=== PATIENT | female | born 1955 | race Caucasian/White ===

== ENCOUNTER → 2016-12-10 | Outpatient (CLI) | payer BC ==
--- NOTE | 2016-12-11 09:26 | MM ---
Reason for exam: screening (asymptomatic). Last mammogram was performed 1 year and 6 months ago. History: Patient is postmenopausal. Family history of premenopausal breast cancer in aunt at age 40 and breast cancer in sister at age 59. Cyst aspiration of the left breast, 1979. Took hormonal contraceptives for 3 years beginning at age 19. Physical Findings: A clinical breast exam by your physician is recommended on an annual basis and results should be correlated with mammographic findings. MG Screening Mammo w CAD Bilateral CC and MLO view(s) were taken. Prior study comparison: June 07, 2015, bilateral MG screening mammo w CAD. September 20, 2014, left breast MG diagnostic mammo LT w CAD. The breast tissue is heterogeneously dense. This may lower the sensitivity of mammography. There is chronic nodularity bilaterally. Developing asymmetry 8mm in the left breast, 10cm from nipple. This finding is changed when compared with previous exams. ASSESSMENT: Incomplete: need additional imaging evaluation, BI-RAD 0 RECOMMENDATION: Special view mammogram of the left breast. If lesion persists on supplemental views, image directed ultrasound is recommended. [facility] will attempt to contact patient to return for supplemental views and ultrasound if indicated.
== END | disposition home or self-care (01) ==
LOC: RADMAMWWP 09:45
PROVIDERS: ATTEND Family Medicine
DX: Z12.31 Encounter for screening mammogram for malignant neoplasm of breast (principal)

== ENCOUNTER → 2016-12-14 | Outpatient (CLI) | payer BC ==
--- NOTE | 2016-12-14 14:55 | MM ---
Reason for exam: additional evaluation requested from abnormal screening. Last mammogram was performed less than 1 month ago. History: Patient is postmenopausal. Family history of premenopausal breast cancer in aunt at age 40 and breast cancer in sister at age 59. Cyst aspiration of the left breast, 1979. Took hormonal contraceptives for 3 years beginning at age 19. Physical Findings: Nurse did not find any significant physical abnormalities on exam. MG Work Up Mamm w CAD LT Spot compression CC, spot compression MLO, and ML view(s) were taken of the left breast. Prior study comparison: December 10, 2016, bilateral MG screening mammo w CAD. June 07, 2015, bilateral MG screening mammo w CAD. The breast tissue is heterogeneously dense. This may lower the sensitivity of mammography. No suspicious abnormality. Inferior asymmetry appears unchanged in comparison to 09/18/11. Superior asymmetry and medial CC asymmetry appear as fibroglandular tissue on additional views. These results were verbally communicated with the patient and result sheet given to the patient on 12/14/16. ASSESSMENT: Benign, BI-RAD 2 RECOMMENDATION: Return to routine screening mammogram schedule for both breasts.
== END | disposition home or self-care (01) ==
LOC: RADMAMWWP 13:40
PROVIDERS: ATTEND Family Medicine
DX: R92.8 Other abnormal and inconclusive findings on diagnostic imaging of breast (principal)

== ENCOUNTER → 2018-02-19 | Outpatient (CLI) | payer BC ==
--- NOTE | 2018-02-20 12:57 | MM ---
Reason for exam: screening (asymptomatic). Last mammogram was performed 1 year and 2 months ago. History: Patient is postmenopausal. Family history of premenopausal breast cancer in aunt at age 40 and breast cancer in sister at age 59. Cyst aspiration of the left breast, 1979. Took hormonal contraceptives for 3 years beginning at age 19. Physical Findings: A clinical breast exam by your physician is recommended on an annual basis and results should be correlated with mammographic findings. MG 3D Screening Mammo W/Cad Bilateral CC and MLO view(s) were taken. Prior study comparison: December 14, 2016, left breast MG work up mamm w CAD LT. December 10, 2016, bilateral MG screening mammo w CAD. The breast tissue is heterogeneously dense. This may lower the sensitivity of mammography. There is chronic nodularity bilaterally. There is no dominant lesion. No significant changes when compared with prior studies. ASSESSMENT: Benign, BI-RAD 2 RECOMMENDATION: Routine screening mammogram of both breasts in 1 year.
== END | disposition home or self-care (01) ==
LOC: RADMAMWWP 14:46
PROVIDERS: ATTEND Family Medicine
DX: Z12.31 Encounter for screening mammogram for malignant neoplasm of breast (principal)
CPT/HCPCS: 77063; 77067

== ENCOUNTER → 2019-02-26 | Outpatient (CLI) | payer OTHER ==
--- NOTE | 2019-02-27 12:02 | MM ---
Reason for exam: screening (asymptomatic). Last mammogram was performed 1 year ago. History: Patient is postmenopausal. Family history of premenopausal breast cancer in aunt at age 40 and breast cancer in sister at age 59. Cyst aspiration of the left breast, 1979. Took hormonal contraceptives for 3 years beginning at age 19. Physical Findings: A clinical breast exam by your physician is recommended on an annual basis and results should be correlated with mammographic findings. MG 3D Screening Mammo W/Cad Bilateral CC and MLO view(s) were taken. Prior study comparison: February 19, 2018, bilateral MG 3d screening mammo w/cad. December 14, 2016, left breast MG work up mamm w CAD LT. The breast tissue is heterogeneously dense. This may lower the sensitivity of mammography. There are benign appearing round calcifications bilaterally. There is no discrete abnormality. ASSESSMENT: Benign, BI-RAD 2 RECOMMENDATION: Routine screening mammogram of both breasts in 1 year.
== END | disposition home or self-care (01) ==
LOC: RADMAMWWP 08:59
PROVIDERS: ATTEND Family Medicine
DX: Z12.31 Encounter for screening mammogram for malignant neoplasm of breast (principal); Z80.3 Family history of malignant neoplasm of breast
CPT/HCPCS: 77063; 77067

== ENCOUNTER → 2020-05-09 | Outpatient (CLI) | payer OTHER ==
--- NOTE | 2020-05-10 14:51 | MM ---
Reason for exam: screening (asymptomatic). Last mammogram was performed 1 year and 2 months ago. History: Patient is postmenopausal. Family history of premenopausal breast cancer in aunt at age 40 and breast cancer in sister at age 59. Cyst aspiration of the left breast, 1979. Took hormonal contraceptives for 3 years beginning at age 19. Physical Findings: A clinical breast exam by your physician is recommended on an annual basis and results should be correlated with mammographic findings. MG 3D Screening Mammo W/Cad Bilateral CC and MLO view(s) were taken. Prior study comparison: February 26, 2019, bilateral MG 3d screening mammo w/cad. February 19, 2018, bilateral MG 3d screening mammo w/cad. The breast tissue is heterogeneously dense. This may lower the sensitivity of mammography. No significant changes when compared with prior studies. ASSESSMENT: Benign, BI-RAD 2 RECOMMENDATION: Routine screening mammogram of both breasts in 1 year.
== END | disposition home or self-care (01) ==
LOC: RADMAMWWP 16:13
PROVIDERS: ATTEND Family Medicine
DX: Z12.31 Encounter for screening mammogram for malignant neoplasm of breast (principal)
CPT/HCPCS: 77063; 77067

== ENCOUNTER → 2020-08-16 | Outpatient (CLI) | payer BC, OTHER ==
[2020-08-16 16:25] VITALS: BP 117/74; PULSE 64; RESP 18; TEMP 98.2
--- NOTE | 2020-08-16 18:05 | P.HPOB ---
History of Present Illness H&P Date: 08/16/20 Chief Complaint: The patient is here for her routine gynecologic exam. This is a 65-year-old with an LMP of 2011. She is status post vaginal hysterectomy with BSO with additional procedures for prolapse. She believes the surgery was done with a rectocele repair and not a cystocele repair. My previous history and physical indicated anterior and posterior repairs were performed at that time. The patient has been experiencing some vaginal prolapse which has become very noticeable in the past 3 weeks. She started noticing fullness in the vagina and at times has noticed a golf ball sized mass protruding from the vaginal opening. She believes this is a cystocele. This can be uncomfortable in seems to interfere with sexual intercourse. It can feel as if there is a tampon in the vagina that was improperly inserted. She has also been noticing urinary frequency and vulvar pruritus. She denies vaginal discharge or vaginal odor. She has not been having significant problems with urinary leakage, but sometimes has to get to the bathroom right away when she has the urge to urinate. Review of Systems She has lost about 14 pounds over the past 5 years. She denies respiratory, cardiac, or GI problems. : See the HPI. Past Medical History Past Medical History: Hypertension Additional Past Medical History / Comment(s): Migraine headaches and chronic neck problems. 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 History of Any Multi-Drug Resistant Organisms: None Reported Past Surgical History: Cholecystectomy, Hysterectomy, Joint Replacement, Orthopedic Surgery Additional Past Surgical History / Comment(s): Vaginal hysterectomy with BSO and anterior and posterior repairs in 2011 right knee replacement surgery and later revision. Foot surgery. Shoulder surgery. Ovarian cyst removed at age 18. Multiple arthroscopic knee surgeries. Colonoscopy 2014(next after 10yrs). Past Psychological History: No Psychological Hx Reported Smoking Status: Former smoker Past Alcohol Use History: Rare (2 per year.) Additional Past Alcohol Use History / Comment(s): Quit smoking in 2004. Past Drug Use History: Marijuana Additional Drug Use History / Comment(s): Medical marijuana in the form of edibles. Additional History: She has been since 1975 and is sexually active. 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 - Past Family History Sister(s) Family Medical History: Cancer Additional Family Medical History / Comment(s): Breast cancer. Father Family Medical History: Cancer Additional Family Medical History / Comment(s): Multiple myeloma. Mother Family Medical History: Dementia Medications and Allergies Home Medications Medication Instructions Recorded Confirmed Type Ascorbic Acid [Vitamin C] 1,000 mg PO DAILY 08/16/20 08/16/20 History Bisoprolol-Hctz 2.5-6.25 mg [Ziac 1 tab PO DAILY 08/16/20 08/16/20 History 2.5-6.25 MG] Celecoxib [CeleBREX] 200 mg PO DAILY 08/16/20 08/16/20 History Cholecalciferol [Vitamin D3 (25 25 mcg PO DAILY 08/16/20 08/16/20 History Mcg = 1000 Iu)] Cyanocobalamin (Vitamin B-12) 1,000 mcg PO DAILY 08/16/20 08/16/20 History [Vitamin B-12] Cyclobenzaprine [Flexeril] 10 mg PO HS 08/16/20 08/16/20 History DULoxetine HCL [Cymbalta] 60 mg PO DAILY 08/16/20 08/16/20 History Magnesium 200 mg PO DAILY 08/16/20 08/16/20 History Mtc Coconut Oil 1 cap PO DAILY 08/16/20 08/16/20 History Topiramate 50 mg PO BID 08/16/20 08/16/20 History Zinc 50 mg PO DAILY 08/16/20 08/16/20 History Allergies Allergy/AdvReac Type Severity Reaction Status Date / Time pregabalin [From Lyrica] Allergy Swelling Unverified 08/16/20 16:09 Exam Vital Signs Temp Pulse Resp BP Pulse Ox 08/16/20 15:53 98.2 F 64 18 117/74 100 Intake and Output 08/16/20 08/16/20 08/16/20 06:59 14:59 22:59 Other: Weight 85.275 kg Height 4 feet 11-1/2 inches, weight 188 pounds, BMI 37.3. This is a well-developed well-nourished white female who is alert and oriented times 3 in no acute distress. HEENT: Within normal limits. NECK: Supple without mass or thyromegaly. CHEST AND LUNGS: Clear to auscultation. HEART: Regular rate and rhythm. BREASTS: Are without mass or discharge. AXILLARY EXAM: Negative for adenopathy. BACK: Negative for CVA tenderness. ABDOMEN: Soft, nontender, without palpable masses. PELVIC EXAM: External genitalia appears mildly atrophy with generalized erythema greater in the posterior aspects of the labia majora. This extends to the perineum. There are no focal lesions and no ulceration or excoriation. Vagina appears normal with mild atrophy. There is a minimal amount of thin vaginal discharge within the vagina that is colorless without significant odor. There is a grade 2 cystocele noted at rest. With Valsalva and cough, a grade 3 cystocele is noted. No urinary leakage was demonstrated. Bimanual examination is negative for mass or tenderness. RECTAL EXAM: Rectovaginal exam is negative for mass or tenderness and is negative for occult blood. No significant rectocele is noted. EXTREMITIES: Nontender. IMPRESSION: 1. 65-year-old menopausal female status post vaginal hysterectomy with BSO for benign reasons with symptomatic grade 3 cystocele. 2. Urinary frequency. Differential diagnosis will include UTI as well as urinary frequency related to the cystocele. 3. Vulvar pruritus. Differential diagnosis will include Lenora vaginitis, bacterial vaginosis, noninfectious vulvitis, and less likely, lichen sclerosus. PLAN: 1. Pap smears have been discontinued. 2. Self breast awareness was discussed with the patient. 3. Osteoporosis prevention was discussed. I have stressed the importance of adequate calcium, vitamin D and regular exercise. Recommended amounts of calcium and vitamin D were also discussed. 4. Recent mammogram was done on 05/09/2020 and was benign. She will repeat this in 1 year. 5. Clean catch midstream urine has been obtained and will be sent for urinalysis and culture with sensitivities. 6. Affirm vaginitis panel was obtained from the vagina. 7. We have had a long discussion regarding vaginal prolapse and the grade 3 cystocele. It seems that at rest the cystocele is considered grade 2, but with Valsalva and coughing, the cystocele reaches the introitus. I have recommended that she avoid heavy lifting. She will try negative Valsalva exercises and she can do this prior to voiding, when she feels pressure in the vagina, and before sexual intercourse. 8. We have discussed options for the cystocele including conservative management, pessary use, and surgery. She would like to try the negative Valsalva exercises with conservative measures at this time. She was instructed to call if she would like a referral for surgical correction since she is contem plating this at this time. We have discussed options including referral to a general pocket assembler as well as a referral to a uro-pocket assembler. 9. The ACOG FAQ handout regarding pelvic support problems was given to the patient. 10. She was advised to return in one year for her annual well woman exam and as needed. She will also call if she would like to proceed with a referral for the cystocele.
[2020-08-16 21:47] LABS: Appearance,Urine Cloudy (Clear); Bacteria,Urine Few /hpf; Bilirubin,Urine Negative (Negative); Blood,Urine Negative (Negative); Color,Urine Yellow; Glucose,Urine (UA) Negative (Negative); Ketones,Urine Negative (Negative); Leukocyte Esterase,Urine Negative (Negative); Mucus,Urine Rare /hpf; Nitrite,Urine Negative (Negative); Protein,Urine Negative (Negative); RBC,Urine <1 /hpf (0-5); Specific Gravity,Urine 1.021 (1.001-1.035); Squamous Epithelial Cell,Urine 8 /hpf (0-4); Urobilinogen,Urine <2.0 mg/dL (<2.0); WBC,Urine 2 /hpf (0-5)
--- NOTE | 2020-08-17 11:28 | P.PN ---
Progress Note - Text Progress Note Date: 08/17/20 OUTPATIENT FOLLOW-UP NOTE TEST(S)/RESULTS: Urinalysis done on 08/16/2020 was negative. METHOD OF NOTIFICATION: A message with this result was left on the patient's voicemail. PATIENT COMMENTS: DIAGNOSIS: No evidence of UTI at this time. DISCUSSION: Affirm vaginitis panel is pending. PLAN: Await urine culture and affirm vaginitis panel results.
[2020-08-17 15:09] LABS: Gardnerella Negative (Negative); Source Vagina; Trichomonas Negative (Negative)
--- NOTE | 2020-08-18 08:32 | P.PN ---
Progress Note - Text Progress Note Date: 08/18/20 Test results from 08/16/20 include Affirm vaginitis panel negative for Lenora, Gardnerella, and Trichomonas. UA and urine culture neg. She was notified by phone. Impression: Vulvar pruritis, non-specific vulvitis. Plan: Kenalog 0.1%cream BID prn, disp 30gr tube, one refill. Prescription will be sent electronically to [facility] on [address]. She says she will call to let me know where she would like to be referred for her cystocele. I have recommended Dr. Pina ([facility]). She is considering Dr. Latoya العراقي, a urologist. I have explained the difference in their specialty.
== END ==
LOC: WWCWWP 15:53
PROVIDERS: ATTEND Obstetrics & Gynecology
DX: Z01.419 Encounter for gynecological examination (general) (routine) without abnormal findings (principal); N81.10 Cystocele, unspecified; L29.2 Pruritus vulvae; I10 Essential (primary) hypertension; Z87.891 Personal history of nicotine dependence; Z90.722 Acquired absence of ovaries, bilateral; Z78.0 Asymptomatic menopausal state; Z88.8 Allergy status to other drugs, medicaments and biological substances
CPT/HCPCS: 81001; 87086; 87480; 87510; 87660

== ENCOUNTER → 2021-03-02 | Outpatient (CLI) | payer OTHER ==
--- NOTE | 2021-03-02 09:00 | US ---
EXAMINATION TYPE: US venous doppler duplex LE LT DATE OF EXAM: 03/02/2021 8:23 AM COMPARISON: NONE CLINICAL HISTORY: M79.662.Surgery 11/2020 with left leg pain. SIDE PERFORMED: Left TECHNIQUE: The lower extremity deep venous system is examined utilizing real time linear array sonog josie with graded compression, doppler sonography and color-flow sonography. VESSELS IMAGED: Common Femoral Vein Deep Femoral Vein Greater Saphenous Vein * Femoral Vein Popliteal Vein Small Saphenous Vein * Proximal Calf Veins (* superficial vessels) Occlusive DVT seen from the left proximal femoral vein through the left popliteal vein Left Leg: Positive for DVT IMPRESSION: As above findings are compatible with DVT.
== END | disposition home or self-care (01) ==
LOC: RADUSWWP 08:06
PROVIDERS: ATTEND Family Medicine
DX: I82.4Z2 Acute embolism and thrombosis of unspecified deep veins of left distal lower extremity (principal)

== ENCOUNTER → 2021-03-22 | Outpatient (CLI) | payer OTHER ==
--- NOTE | 2021-03-23 09:51 | ECHOF ---
Referral Reason:R01.1 MEASUREMENTS -------- HEIGHT: 139.7 cm WEIGHT: 86.2 kg BP: RVIDd: 2.3 cm (< 3.3) IVSd: 1.1 cm (0.6 - 1.1) LVIDd: 3.8 cm (3.9 - 5.3) LVPWd: 1.1 cm (0.6 - 1.1) IVSs: 1.3 cm LVIDs: 2.7 cm LVPWs: 1.3 cm LA Diam: 2.9 cm (2.7 - 3.8) LAESV Index (A-L): 34.29 ml/m Ao Diam: 2.6 cm (2.0 - 3.7) AV Cusp: 1.7 cm (1.5 - 2.6) LA Diam: 3.3 cm (2.7 - 3.8) MV EXCURSION: 17.310 mm (> 18.000) MV EF SLOPE: 104 mm/s (70 - 150) EPSS: 0.1 cm MV E Rickey: 0.84 m/s MV DecT: 277 ms MV A Rickey: 0.99 m/s MV E/A Ratio: 0.85 AV maxP.17 mmHg AV meanP.04 mmHg RAP: 5.00 mmHg RVSP: 41.62 mmHg FINDINGS -------- Sinus rhythm. This was a technically good study. LV size, wall thickness and systolic function are normal, with an EF greater than 55%. The left emily tricular size is normal. The right ventricle is normal in size. LA is midly dilated 29-33ml/m2. The right atrial size is normal. There is mild aortic stenosis present. Peak/mean gradient across the Aortic Valve is 17.17mmHg / 8. 04mmHg. Mild mitral regurgitation is present. Mild tricuspid regurgitation present. There is mild pulmonary hypertension. The right ventricular systolic pressure, as measured by Doppler, is 41.62mmHg. There is no pulmonic regurgitation present. Echo free space represents a pericardial fat pad. CONCLUSIONS -------- 1. LV size, wall thickness and systolic function are normal, with an EF greater than 55%. 2. The left ventricular size is normal. 3. The right ventricle is normal in size. 4. LA is midly dilated 29-33ml/m2. 5. The right atrial size is normal. 6. There is mild aortic stenosis present. 7. Peak/mean gradient across the Aortic Valve is 17.17mmHg / 8.04mmHg. 8. Mild mitral regurgitation is present. 9. Mild tricuspid regurgitation present. 10. There is mild pulmonary hypertension. 11. The right ventricular systolic pressure, as measured by Doppler, is 41.62mmHg. 12. Echo free space represents a pericardial fat pad. PEDIATRIC GENETICIST: Yisel Erazo RDCS
== END | disposition home or self-care (01) ==
LOC: RADECHMAIN 11:53
PROVIDERS: ATTEND Family Medicine
DX: I08.3 Combined rheumatic disorders of mitral, aortic and tricuspid valves (principal); I27.20 Pulmonary hypertension, unspecified
CPT/HCPCS: 93306

== ENCOUNTER → 2021-10-13 | Outpatient (CLI) | payer OTHER ==
--- NOTE | 2021-10-16 20:04 | MM ---
Reason for Exam: Screening (asymptomatic). Last mammogram was performed 1 year(s) and 5 month(s) ago. Patient History: Menarche at age 12. First Full-Term at age 23. Left ovary removed at age 58. Right ovary removed at age 58. Hysterectomy at age 58. Postmenopausal. Hormonal Contraceptives for 3 years from age 19 until age 22. 1980, Cyst Aspiration on the Left side. Maternal aunt had breast cancer, age 40. Sister had breast cancer, age 59. Risk Values: Lexus 5 year model risk: 3.4%. NCI Lifetime model risk: 13.2%. Prior Study Comparison: 02/19/2018 Bilateral Screening Mammogram, [facility]. 02/26/2019 Bilateral Screening Mammogram, [facility]. 05/09/2020 Bilateral Screening Mammogram, [facility]. Tissue Density: The breast tissue is heterogeneously dense. This may lower the sensitivity of mammography. Findings: Analyzed By CAD. Areas of bilaterally symmetric density are unchanged. No significant change from prior exams. Overall Assessment: Benign, BI-RAD 2 Management: Screening Mammogram of both breasts in 1 year. 1. Patient should continue monthly self breast exams. 2. A clinical breast exam by your physician is recommended on an annual basis. 3. This exam should not preclude additional follow-up of suspicious palpable abnormalities. Electronically signed and approved by: Davonte Brooks M.D. Radiologist
== END | disposition home or self-care (01) ==
LOC: RADMAMWWP 16:04
PROVIDERS: ATTEND Family Medicine
DX: Z12.31 Encounter for screening mammogram for malignant neoplasm of breast (principal); Z78.0 Asymptomatic menopausal state; Z80.3 Family history of malignant neoplasm of breast
CPT/HCPCS: 77063; 77067

== ENCOUNTER → 2022-11-07 | Outpatient (CLI) | payer OTHER, MEDICARE ==
--- NOTE | 2022-11-08 20:07 | MM ---
Reason for Exam: Screening (asymptomatic). Last mammogram was performed 1 year(s) and 1 month(s) ago. Patient History: Menarche at age 12. First Full-Term at age 23. Left ovary removed at age 58. Right ovary removed at age 58. Hysterectomy at age 58. Postmenopausal. Hormonal Contraceptives for 3 years from age 19 until age 22. 1980, Cyst Aspiration on the Left side. Maternal aunt had breast cancer, age 40. Sister had breast cancer, age 59. Risk Values: Lexus 5 year model risk: 3.5%. NCI Lifetime model risk: 12.7%. Prior Study Comparison: 02/26/2019 Bilateral Screening Mammogram, [facility]. 05/09/2020 Bilateral Screening Mammogram, [facility]. 10/13/2021 Bilateral MG 3D screening mammo w/cad, [facility]. Tissue Density: The breast tissue is heterogeneously dense. This may lower the sensitivity of mammography. Findings: Analyzed By CAD. Bilateral asymmetric densities are unchanged. However, an area of central nodularity left cc view is more defined. Otherwise, no significant change from prior exams. Overall Assessment: Incomplete: need additional imaging evaluation, BI-RAD 0 Management: Special View Mammogram of the left breast. Including spot 3-D CC, 3-D cc rolled, and 3-D lateral views. Targeted left breast ultrasound if any persisting abnormality. [facility] will attempt to contact patient to return for supplemental views and ultrasound if indicated. Electronically signed and approved by: Davonte Brooks M.D. Radiologist
== END | disposition home or self-care (01) ==
LOC: RADMAMWWP 09:31
PROVIDERS: ATTEND Family Medicine
DX: Z12.31 Encounter for screening mammogram for malignant neoplasm of breast (principal); Z78.0 Asymptomatic menopausal state; Z80.3 Family history of malignant neoplasm of breast
CPT/HCPCS: 77063; 77067

== ENCOUNTER → 2022-11-15 | Outpatient (CLI) | payer OTHER, MEDICARE ==
--- NOTE | 2022-11-15 14:15 | MM ---
Reason for Exam: Additional evaluation requested from abnormal screening. Last screening mammogram was performed less than 1 month ago. Patient History: Menarche at age 12. First Full-Term at age 23. Left ovary removed at age 58. Right ovary removed at age 58. Hysterectomy at age 58. Postmenopausal. Hormonal Contraceptives for 3 years from age 19 until age 22. 1980, Cyst Aspiration on the Left side. Maternal aunt had breast cancer, age 40. Sister had breast cancer, age 59. Risk Values: Lexus 5 year model risk: 3.5%. NCI Lifetime model risk: 12.7%. Prior Study Comparison: 12/10/2016 Bilateral Screening Mammogram, [facility]. 12/14/2016 Left Diagnostic Mammogram, [facility]. 02/19/2018 Bilateral Screening Mammogram, [facility]. 02/26/2019 Bilateral Screening Mammogram, [facility]. 05/09/2020 Bilateral Screening Mammogram, [facility]. 10/13/2021 Bilateral MG 3D screening mammo w/cad, [facility]. 11/07/2022 Bilateral MG 3D screening mammo w/cad, [facility]. Tissue Density: Left: The breast tissue is heterogeneously dense. This may lower the sensitivity of mammography. Findings: Analyzed By CAD. Area of questioned asymmetric density centrally on the left becomes less defined on spot view, appearing similar to older priors. On the lateral view, nodularity becomes apparent superiorly at a middle depth. However, a prior lateral view from 2017 shows stable findings. Overall Assessment: Benign, BI-RAD 2 Management: Screening Mammogram of both breasts in 1 year. See note below in regards to patient's increased 5 year Lexus score. Results were given to the patient verbally at the time of exam. Patient should continue monthly self-breast exams. A clinical breast exam by your physician is recommended on an annual basis. This exam should not preclude additional follow-up of suspicious palpable abnormalities. Note on Lexus scores and lifetime risk: 1. A Lexus score greater than 3% is considered moderate risk. If this is the case, consider specialist referral to assess eligibility for a risk reducing agent. 2. If overall lifetime risk for the development of breast cancer is 20% or higher, the patient may qualify for future screening with alternating mammogram and breast MRI. Electronically signed and approved by: Davonte Brooks M.D. Radiologist
== END | disposition home or self-care (01) ==
LOC: RADMAMWWP 13:48
PROVIDERS: ATTEND Family Medicine
DX: R92.8 Other abnormal and inconclusive findings on diagnostic imaging of breast (principal); Z78.0 Asymptomatic menopausal state; Z80.3 Family history of malignant neoplasm of breast
CPT/HCPCS: 77061; 77065

== ENCOUNTER → 2023-01-11 | Outpatient (CLI) | payer OTHER, MEDICARE ==
--- NOTE | 2023-01-11 17:04 | US ---
EXAMINATION TYPE: US venous doppler duplex LE LT DATE OF EXAM: 01/11/2023 4:39 PM COMPARISON: 03/02/21 CLINICAL INDICATION: Female, 67 years old with history of M79.605 PAIN IN LEFT LEG; Lt leg pain, segundo ent had DVT 2020 SIDE PERFORMED: Left TECHNIQUE: The lower extremity deep venous system is examined utilizing real time linear array sonog josie with graded compression, doppler sonography and color-flow sonography. VESSELS IMAGED: Common Femoral Vein Deep Femoral Vein Greater Saphenous Vein * Femoral Vein Popliteal Vein Small Saphenous Vein * Proximal Calf Veins (* superficial vessels) Left Leg: Positive for ?chronic? DVT DVT appears largely unchanged from 2020, partially thrombosed from proximal to distal femoral vein. T hrombosed area may show adjacent collateral flow vs. recanalized chronic DVT vs. other. Popliteal carter ws compressibility but thready color flow. IMPRESSION: Findings in the left femoral vein likely related to sequela of chronic DVT.
== END | disposition home or self-care (01) ==
LOC: RADUSWWP 16:02
PROVIDERS: ATTEND Family Medicine
DX: I82.402 Acute embolism and thrombosis of unspecified deep veins of left lower extremity (principal); M79.605 Pain in left leg; Z86.718 Personal history of other venous thrombosis and embolism

== ENCOUNTER → 2023-01-31 | Outpatient (CLI) | payer OTHER, MEDICARE ==
--- NOTE | 2023-01-31 11:43 | BD ---
EXAMINATION TYPE: Axial Bone Density DATE OF EXAM: 01/31/2023 CLINICAL HISTORY: 67 years old Female. ICD-10 CODE: Z13.820 ENCOUNTER FOR SCREENING FOR OSTEOPOROSIS Height: 60 in Weight: 181 lbs RISK FACTORS HISTORY OF: Active: yes Postmenopausal woman: total hysterectomy age 57 MEDICATIONS: Additional Medications: vit d,multi vit, blood pressure meds, migraine meds, anti inflammatory, EXAM MEASUREMENTS: Bone mineral densitometry was performed using the [employer]. Bone mineral density as measured about the Lumbar spine is: ----- L1-L4(G/cm2): 1.146 T Score Values are as follows: ----- L1: -0.1 ----- L2: -0.2 ----- L3: -0.2 ----- L4: -0.8 ----- L1-L4: -0.3 Z Score Values are as follows: ----- L1: 1.0 ----- L2: 0.8 ----- L3: 0.8 ----- L4: 0.2 ----- L1-L4: 0.7 Bone mineral density baseline Bone mineral density about the R hip (g/cm2): 0.829 Bone mineral density about the L hip (g/cm2): 0.966 T Score values are as follows: -----R Neck: -2.1 -----L Neck: -1.3 -----R Total: -1.4 -----L Total: -0.3 Z Score values are as follows: -----R Neck: -0.9 -----L Neck: -0.1 -----R Total: -0.6 -----L Total: 0.5 Bone mineral density baseline FRAX%s: The graph provided illustrates a 10.4% chance for a major osteoporotic fx and a 1.6% chance f or the hips probability for fx in 10 years time. IMPRESSION: Osteopenia (T Score between -2.5 and -1). There is slightly increased risk of fracture and the patient may be considered for treatment. Re-Screen 2-5 years. NOTE: T-SCORE=SD OF THE YOUNG ADULT MEAN.
== END | disposition home or self-care (01) ==
LOC: RADBDWWP 07:14
PROVIDERS: ATTEND Family Medicine
DX: Z13.820 Encounter for screening for osteoporosis (principal); M85.89 Other specified disorders of bone density and structure, multiple sites; Z78.0 Asymptomatic menopausal state
CPT/HCPCS: 77080

== ENCOUNTER → 2023-07-23 | Outpatient (CLI) | payer MEDICARE, OTHER ==
[2023-07-23 16:16] VITALS: BP 134/71; PULSE 72; RESP 18; TEMP 98.1
--- NOTE | 2023-07-23 17:19 | P.HPOB ---
History of Present Illness H&P Date: 07/23/23 Chief Complaint: The patient is here for her routine gynecologic exam. This is a 68-year-old with an LMP of 2011. She is status post vaginal hysterectomy with BSO for benign reasons. The patient had a worsening cystocele in 2020 and was referred to Dr. Newby for this. He performed a cystocele repair with a uterosacral vault suspension. She denies any significant prolapse symptoms. During the past 6 months she has noticed some vulvar burning, itchiness, and dryness. She notices blood on the posterior left labial area. Her liquor gallery operator examined it and also did a biopsy from her chest area and indicated that the biopsy showed lichen sclerosis. She was given clobetasol ointment which she was to use for 2 weeks and then she was to use tacrolimus ointment 0.1% daily. She states the Temovate did help, but it has not completely gone away. She states the tacrolimus ointment was very expensive. She is otherwise without gynecologic complaints. Review of Systems She has lost 9 pounds since she was last here 3 years ago. She denies respiratory, cardiac, or GI problems. Past Medical History Past Medical History: Deep Vein Thrombosis (DVT), Hypertension Additional Past Medical History / Comment(s): Migraine headaches and chronic neck problems. Postoperative DVT in 2020. PAST SALES [employer] HISTORY: She has no history of STDs. History of Any Multi-Drug Resistant Organisms: None Reported Past Surgical History: Cholecystectomy, Hysterectomy, Joint Replacement, Orthopedic Surgery Additional Past Surgical History / Comment(s): Vaginal hysterectomy with BSO and anterior and posterior repairs in 2011 right knee replacement surgery and later revision. Foot surgery. Shoulder surgery. Ovarian cyst removed at age 18. Multiple arthroscopic knee surgeries. Colonoscopy 2014(next after 10yrs). Cystocele repair with uterosacral vault suspension 2020(post op DVT). Past Psychological History: No Psychological Hx Reported Smoking Status: Former smoker Past Alcohol Use History: Occasional (2 drinks per month.) Additional Past Alcohol Use History / Comment(s): Quit smoking in 2004. Past Drug Use History: Marijuana Additional Drug Use History / Comment(s): Medical marijuana in the form of edibles. Additional History: She has been since 1975 and is sexually active. She is retired. - Past Family History Sister(s) Family Medical History: Cancer Additional Family Medical History / Comment(s): Breast cancer. Father Family Medical History: Cancer Additional Family Medical History / Comment(s): Multiple myeloma. Mother Family Medical History: Dementia Medications and Allergies Home Medications Medication Instructions Recorded Confirmed Type Bisoprolol-Hctz 2.5-6.25 mg [Ziac 1 tab PO DAILY 08/16/20 07/23/23 History 2.5-6.25 MG] Celecoxib [CeleBREX] 200 mg PO DAILY 08/16/20 07/23/23 History Cholecalciferol [Vitamin D3 (25 25 mcg PO DAILY 08/16/20 07/23/23 History Mcg = 1000 Iu)] Magnesium 200 mg PO DAILY 08/16/20 07/23/23 History Topiramate 50 mg PO BID 08/16/20 07/23/23 History Clobetasol Propionate [Temovate 1 applic TOPICAL DAILY 07/23/23 07/23/23 History 0.05% Cream] Rimegepant Sulfate [Nurtec Odt] 75 mg PO DIRECTED 07/23/23 07/23/23 History Tacrolimus/Niacinamide [Oxianujo 1 applic TOPICAL DAILY 07/23/23 07/23/23 History 4%-0.1% Ointment] Allergies Allergy/AdvReac Type Severity Reaction Status Date / Time pregabalin [From Lyrica] Allergy Swelling Unverified 07/23/23 15:24 Exam Vital Signs Temp Pulse Resp BP Pulse Ox 07/23/23 15:27 98.1 F 72 18 134/71 96 Intake and Output 07/23/23 07/23/23 07/23/23 06:59 14:59 22:59 Other: Weight 81.193 kg Height 5 feet 0 inches, weight 179 pounds, BMI 35.0. This is a well-developed well-nourished white female who is alert and oriented times 3 in no acute distress. HEENT: Within normal limits. NECK: Supple without mass or thyromegaly. CHEST AND LUNGS: Clear to auscultation. HEART: Regular rate and rhythm. BREASTS: Are without mass or discharge. AXILLARY EXAM: Negative for adenopathy. BACK: Negative for CVA tenderness. ABDOMEN: Soft, nontender, without palpable masses. PELVIC EXAM: External genitalia reveals minimally thickened skin in the po sterior left labia majora with minimal erythema and no pallor. The external genitalia reveals mild atrophy with no significant pallor. There is no ulceration or excoriation noted. Vagina appears normal mild atrophy. There is a grade 1 minimal cystocele with Valsalva. Bimanual examination is negative for mass or tenderness. RECTAL EXAM: Rectovaginal exam is negative for mass or tenderness and is negative for occult blood. EXTREMITIES: Nontender. IMPRESSION: 1. 68-year-old menopausal female status post vaginal hysterectomy with BSO, with A&P repairs in 2011 for benign reasons. 2. Status post cystocele repair with uterosacral vault suspension in 2020. 3. Mild left posterior vulvar irritation with minimal hypertrophy. This does not have the typical appearance of lichen sclerosis and does appear benign. 4. Osteopenia. PLAN: 1. Pap smears have been discontinued 2. Self breast awareness was discussed with the patient. We have also discussed symptoms associated with inflammatory breast cancer. 3. She did have a bilateral mammogram on 11/07/2022 which did require a left breast workup which was benign. Screening mammogram in 1 year was recommended. The order slip was given to the patient for this. 4. I have recommended that she discontinue the tacrolimus ointment and we will have a trial with Kenalog 0.1% ointment twice daily x 2 weeks. She then can wean off of this and use it as needed. She can also use petroleum jelly or A&E ointment once daily after the Kenalog has been discontinued as a protective layer. She was instructed to avoid over washing as well as scratching or rubbing this area. If after 1 month this has not resolved she was instructed to make an appointment for reevaluation and at that time we will consider biopsying the area if it has not resolved. 5. Osteoporosis prevention was discussed. I have stressed the importance of adequate calcium, vitamin D and regular exercise. Recommended amounts of calcium and vitamin D were also discussed. Will plan on repeating the bone density test in about 2 years. She had a bone density test on 01/31/2023 which showed osteopenia. 6. She was advised to return in one year for her annual well woman exam and as needed.
== END ==
LOC: WWCWWP 15:09
PROVIDERS: ATTEND Obstetrics & Gynecology
DX: Z01.419 Encounter for gynecological examination (general) (routine) without abnormal findings (principal); M85.80 Other specified disorders of bone density and structure, unspecified site; N90.60 Unspecified hypertrophy of vulva; Z90.710 Acquired absence of both cervix and uterus; Z78.0 Asymptomatic menopausal state; Z90.722 Acquired absence of ovaries, bilateral; Z98.890 Other specified postprocedural states; Z80.3 Family history of malignant neoplasm of breast; Z88.8 Allergy status to other drugs, medicaments and biological substances; Z87.891 Personal history of nicotine dependence

== ENCOUNTER → 2023-12-12 | Outpatient (CLI) | payer MEDICARE, OTHER ==
--- NOTE | 2023-12-16 09:17 | MM ---
Reason for Exam: Screening (asymptomatic). Last mammogram was performed 1 year(s) and 1 month(s) ago. Patient History: Menarche at age 12. First Full-Term at age 23. Left ovary removed at age 58. Right ovary removed at age 58. Hysterectomy at age 58. Postmenopausal. Hormonal Contraceptives for 3 years from age 19 until age 22. 1980, Cyst Aspiration on the Left side. Maternal aunt had breast cancer, age 40. Sister had breast cancer, age 59. Risk Values: Lexus 5 year model risk: 3.5%. NCI Lifetime model risk: 12.3%. Prior Study Comparison: 10/13/2021 Bilateral MG 3D screening mammo w/cad, [facility]. 11/07/2022 Bilateral MG 3D screening mammo w/cad, [facility]. 11/15/2022 Left MG 3D work up w/cad , [facility]. Tissue Density: The breasts are heterogeneously dense, which may obscure small masses. Findings: Analyzed By CAD. Right breast: There is no suspicious group of microcalcifications or new suspicious mass. Left breast: There is no suspicious group of microcalcifications or new suspicious mass. Overall Assessment: Negative, BI-RAD 1 Management: Screening Mammogram of both breasts in [address] [facility] will attempt to contact patient to return for supplemental views and ultrasound if indicated. Patient should continue monthly self-breast exams. A clinical breast exam by your physician is recommended on an annual basis. This exam should not preclude additional follow-up of suspicious palpable abnormalities. Note on Lexus scores and lifetime risk: 1. A Lexus score greater than 3% is considered moderate risk. If this is the case, consider specialist referral to assess eligibility for a risk reducing agent. 2. If overall lifetime risk for the development of breast cancer is 20% or higher, the patient may qualify for future screening with alternating mammogram and breast MRI. [facility], , 12/16/2023 9:14 AM. Electronically signed and approved by: Duane Kaba DO
== END | disposition home or self-care (01) ==
LOC: RADMAMWWP 14:22
PROVIDERS: ATTEND Obstetrics & Gynecology
CPT/HCPCS: 77063; 77067

== ENCOUNTER → 2024-09-22 | Outpatient (CLI) | payer MEDICARE, OTHER ==
--- NOTE | 2024-09-26 01:30 | CT ---
EXAMINATION TYPE: CT knee RT wo con DATE OF EXAM: 09/22/2024 11:41 AM COMPARISON: None. CLINICAL INDICATION: Female, 69 years old with history of M25.561 PAIN IN RIGHT KNEE, fell on knee TECHNIQUE: Contrast used: mL of , (none if empty) Oral contrast used: (none if empty) Axial images at 3 mm thick sections. Reconstructed images in the coronal and sagittal planes. FINDINGS: Beam hardening artifact from the patient's knee prosthesis causes some limitation during portions of this examination. No acute fracture is evident. No suspicious adjacent lucency to the prosthesis to suggest loosening i s evident. No joint effusion is evident. IMPRESSION: 1. NO SUSPICIOUS ACUTE CHANGES AT THE RIGHT KNEE. 2. NO SUSPICIOUS CHRONIC CHANGES TO SUGGEST LOOSENING. [facility], Workstation: [facility], 09/26/2024 1:28 AM
== END | disposition home or self-care (01) ==
LOC: RADCTMAIN 10:49
PROVIDERS: ATTEND Family Medicine
DX: M25.561 Pain in right knee (principal)